=== PATIENT | male | born 2005 | race Caucasian/White ===

== ENCOUNTER 2023-01-25 20:45 | Emergency (ER) | payer OTHER ==
[~2023-01-25] VITALS: Ht 175.3 cm; Wt 102.2 kg
[2023-01-25] MEDS ORDERED: MORPHINE 4 MG/ML 1ML VIAL IV PRN (20:55)
[2023-01-25 20:56] VITALS: TEMP 97.2
[2023-01-25 23:15] VITALS: BP 135/63
[2023-01-25 23:16] VITALS: O2SAT 98
[2023-01-25] MEDS ORDERED: IBUPROFEN 600MG TAB PO ONE (23:20)
== END 2023-01-25 23:49 | disposition home or self-care (01) ==
LOC: M ED 20:45
DX: S83.002A Unspecified subluxation of left patella, initial encounter (principal); S83.412A Sprain of medial collateral ligament of left knee, initial encounter; V29.99XA Rider (driver) (passenger) of other motorcycle injured in unspecified traffic accident, initial encounter; Y92.410 Unspecified street and highway as the place of occurrence of the external cause; Y93.89 Activity, other specified; Y99.8 Other external cause status